=== PATIENT | female | born 1955 | race African-American/Black ===

== ENCOUNTER 2017-11-22 16:48 | Emergency (ER) | payer MEDICARE, MEDICAID ==
[~2017-11-22] VITALS: Ht 167.6 cm; Wt 83.9 kg
[2017-11-22 16:53] VITALS: BP 122/82
[2017-11-22 17:29] LABS: Basophils # (auto) 0.1 uL; Hemoglobin 14.6 g/dL (12.2-16.2); Monocytes % (auto) 7.5 % (0.0-12.0); White Blood Cell 11.4 10^3/uL (4.4-10.8)
[2017-11-22 17:31] LABS: Eosinophils # (auto) 0.1 uL; Eosinophils % (auto) 0.5 % (0.0-7.0); Hematocrit 44.4 % (36.0-46.0); Lymphocytes # (auto) 3.6 uL; Lymphocytes % (auto) 31.4 % (10.0-50.0); Mean Corpuscular Hemoglobin 28.8 pg (28.0-32.0); Mean Corpuscular Hgb Conc. 32.9 g/dL (32.0-36.0); Mean Corpuscular Volume 87.8 fL (80.0-100.0); Monocytes # (auto) 0.9 uL; Neutrophils # (auto) 6.8 uL; Neutrophils % (auto) 59.6 % (37.0-80.0); Nucleated Red Blood Cells % 0.2 %; Platelet Count (auto) 544 10^3/uL (140-450); Red Blood Cells 5.06 10^6/uL (4.0-5.20); Red Cell Distribution Width 13.4 % (11.8-14.3)
[2017-11-22 17:41] LABS: Alanine Aminotransferase 49 U/L (13-56); Albumin 4.2 g/dL (3.4-5.0); Amylase 69 U/L (25-115); Anion Gap 8 (5-15); Aspartate Aminotransferase 34 U/L (15-37); Blood Urea Nitrogen 15 mg/dL (7-18); Calcium 9.7 mg/dL (8.5-10.1); Carbon Dioxide 24 mmol/L (21-32); Chloride 104 mmol/L (98-107); GFR African American 78 mL/min; GFR Non-African American 64 mL/min; Glucose 115 mg/dL (74-106); Lipase 116 U/L (73-393); Potassium 3.8 mmol/L (3.5-5.1); Sodium 136 mmol/L (136-145)
[2017-11-22 17:46] LABS: Alkaline Phosphatase 143 U/L (45-117); Bilirubin, Total 0.2 mg/dL (0.2-1.0); Total Protein 8.4 g/dL (6.4-8.2)
== END 2017-11-23 03:24 | disposition left against medical advice (07) ==
LOC: ER 16:48
DX: R10.9 Unspecified abdominal pain (principal); J11.1 Influenza due to unidentified influenza virus with other respiratory manifestations; Z53.21 Procedure and treatment not carried out due to patient leaving prior to being seen by health care provider
CPT/HCPCS: 36415; 71046; 80053; 82150; 83690; 84484; 85025; 93005

== ENCOUNTER 2018-03-27 10:13 | Emergency (ER) | payer MEDICARE, MEDICAID ==
[~2018-03-27] VITALS: Ht 167.6 cm; Wt 95.3 kg
[2018-03-27] MEDS ORDERED: KETOROLAC TROMETH 60MG/2ML VIAL IM ONE (10:45)
[2018-03-27 10:59] LABS: Basophils # (auto) 0.1 uL; Eosinophils # (auto) 0.1 uL; Nucleated Red Blood Cells % 0.4 %
[2018-03-27 11:00] LABS: Basophils % (auto) 1.3 % (0.0-2.0); Eosinophils % (auto) 1.4 % (0.0-7.0); Hematocrit 42.3 % (36.0-46.0); Lymphocytes # (auto) 3.6 uL; Lymphocytes % (auto) 46.8 % (10.0-50.0); Mean Corpuscular Hemoglobin 28.7 pg (28.0-32.0); Mean Corpuscular Hgb Conc. 33.1 g/dL (32.0-36.0); Mean Corpuscular Volume 86.6 fL (80.0-100.0); Monocytes # (auto) 0.4 uL; Monocytes % (auto) 5.6 % (0.0-12.0); Neutrophils # (auto) 3.4 uL; Neutrophils % (auto) 44.9 % (37.0-80.0); Platelet Count (auto) 514 10^3/uL (140-450); Red Blood Cells 4.88 10^6/uL (4.0-5.20); Red Cell Distribution Width 13.4 % (11.8-14.3); White Blood Cell 7.7 10^3/uL (4.4-10.8)
[2018-03-27 11:10] LABS: Albumin 3.6 g/dL (3.4-5.0); BUN/Creatinine Ratio 9.2; Calcium 9.6 mg/dL (8.5-10.1); Potassium 4.3 mmol/L (3.5-5.1)
[2018-03-27 11:13] LABS: Bilirubin, Total 0.2 mg/dL (0.2-1.0); Total Protein 7.6 g/dL (6.4-8.2)
[2018-03-27 14:30] VITALS: BP 151/88
== END 2018-03-27 14:50 | disposition home or self-care (01) ==
LOC: ER 10:13 → EDBD 10:13 → ER 14:50
DX: J40 Bronchitis, not specified as acute or chronic (principal); I10 Essential (primary) hypertension; R07.9 Chest pain, unspecified
CPT/HCPCS: 36415; 71045; 80053; 84484; 85025; 93005; 96372; 99285; J1885

== ENCOUNTER → 2020-12-20 | Outpatient (CLI) | payer MEDICARE, MEDICAID | END | disposition home or self-care (01) | LOC: Rad HDHVI 15:05 | PROVIDERS: ATTEND Internal Medicine Cardiovascular Disease | DX: I50.43 Acute on chronic combined systolic (congestive) and diastolic (congestive) heart failure (principal); I42.0 Dilated cardiomyopathy | CPT/HCPCS: 93306 ==

== ENCOUNTER → 2021-01-13 | Outpatient (CLI) | payer MEDICARE, MEDICAID ==
[~2021-01-13] VITALS: Ht 167.6 cm; Wt 92.5 kg
== END | disposition home or self-care (01) ==
LOC: Rad HDHVI 08:38
PROVIDERS: ATTEND Internal Medicine Cardiovascular Disease
DX: Z01.810 Encounter for preprocedural cardiovascular examination (principal); I10 Essential (primary) hypertension; E78.00 Pure hypercholesterolemia, unspecified; I25.2 Old myocardial infarction; Z82.49 Family history of ischemic heart disease and other diseases of the circulatory system
CPT/HCPCS: 78452; 93017; 96374; A9500

== ENCOUNTER → 2021-12-21 | Outpatient (CLI) | payer MEDICARE, MEDICAID ==
[~2021-12-21] VITALS: Ht 167.6 cm; Wt 95.3 kg
== END | disposition home or self-care (01) ==
LOC: Rad HDHVI 09:36
PROVIDERS: ATTEND Internal Medicine Cardiovascular Disease
DX: I25.2 Old myocardial infarction (principal); E78.00 Pure hypercholesterolemia, unspecified; Z82.49 Family history of ischemic heart disease and other diseases of the circulatory system
CPT/HCPCS: 78452; 93017; 96374; A9500

== ENCOUNTER → 2021-12-26 | Outpatient (CLI) | payer MEDICARE, MEDICAID | END | disposition home or self-care (01) | LOC: Rad HDHVI 10:19 | PROVIDERS: ATTEND Internal Medicine Cardiovascular Disease | DX: I10 Essential (primary) hypertension (principal); E78.5 Hyperlipidemia, unspecified | CPT/HCPCS: 93306 ==

== ENCOUNTER → 2024-01-21 | Outpatient (CLI) | payer MEDICARE, MEDICAID | END | disposition home or self-care (01) | LOC: Rad HDHVI 14:04 | PROVIDERS: ATTEND Internal Medicine Cardiovascular Disease | DX: I11.9 Hypertensive heart disease without heart failure (principal); E78.5 Hyperlipidemia, unspecified | CPT/HCPCS: 93306 ==

== ENCOUNTER → 2024-01-23 | Outpatient (CLI) | payer MEDICARE, MEDICAID ==
[~2024-01-23] VITALS: Ht 167.6 cm; Wt 100.2 kg
== END | disposition home or self-care (01) ==
LOC: Rad HDHVI 13:00
PROVIDERS: ATTEND Internal Medicine Cardiovascular Disease
DX: I11.0 Hypertensive heart disease with heart failure (principal); I50.33 Acute on chronic diastolic (congestive) heart failure; I25.2 Old myocardial infarction; R73.03 Prediabetes; E78.5 Hyperlipidemia, unspecified; Z82.49 Family history of ischemic heart disease and other diseases of the circulatory system
CPT/HCPCS: 78452; 93017; 96374; A9500

== ENCOUNTER → 2024-06-25 | Outpatient (CLI) | payer MEDICARE, MEDICAID | END | disposition home or self-care (01) | LOC: Rad HDHVI 10:49 | PROVIDERS: ATTEND Internal Medicine Cardiovascular Disease | DX: M47.814 Spondylosis without myelopathy or radiculopathy, thoracic region (principal); M48.04 Spinal stenosis, thoracic region; M25.78 Osteophyte, vertebrae | CPT/HCPCS: 72128 ==

== ENCOUNTER 2025-08-17 12:55 | Outpatient (CLI) | payer MEDICARE, MEDICAID ==
[~2025-08-17 12:55] MED LIST: ATOR20TA50 PO; CLON0.1T PO; FOLI-119 PO; HYDR-4072 PO; HYDR25TA5 PO; ICOS1CAP PO; LISI10TA34 PO; METO-289 PO; NALO1TAB4 PO; ONDA-188 PO; RIV15T PO; SERT-289 PO; SUVO1TAB4 PO
--- NOTE | 2025-08-18 13:35 | DVHSR ---
APPROVED REPORT EXAM: Two-dimensional and M-mode echocardiogram with Doppler and color Doppler. DIMENSIONS LVDd3.4 (3.8-5.7cm)LA (2D)3.3 (1.9-4.0cm)Aortic Root2.9 (2.0-3.7cm) LVDs2.5 (2.5-4.0cm)LA (MM) (1.9-4.0cm)Aortic Cusp Exc1.7 (1.5-2.0cm) EF (%) 53.0 (55-70%)Rt. Atrium3.8 (1.9-4.0cm)Asc. Aorta cm IVSd1.3 (0.7-1.1cm)RV (D)3.5 (1.8-2.4cm) PWd1.3 (0.7-1.1cm) Mitral Valve MitralMitral Stenosis E wave0.37m/sMV Mean GR.mmHg A wave0.76m/sMV Peak GR.mmHg E/A ratio0.52D MVAcm2 DECEL [id number] 1/2 [place] Aortic Valve Aortic ValveAortic Stenosis V10.86m/Tayler Mean GR.2mmHg V21.00m/Tayler Peak GR.4mmHg LVOT Diameter1.9 (1.8-2.4cm)Doppler AVA2.44cm2 Pulmonic Valve V20.81m/s LEFT VENTRICLE The left ventricle is normal size. There is mild concentric left ventricular hypertrophy. The left ventricle is normal in structure and function. The Ejection Fraction is within normal limits. RIGHT VENTRICLE The right ventricle is normal size. ATRIA The left atrial size is normal. The right atrium size is normal. The interatrial septum is intact with no evidence for an atrial septal defect. MITRAL VALVE The mitral valve is normal in structure. There is no mitral valve regurgitation noted. PULMONIC VALVE The pulmonic valve is not well visualized. TRICUSPID VALVE The tricuspid valve is grossly normal. AORTIC VALVE The aortic valve opens well. No aortic regurgitation is present. GREAT VESSELS The aortic root is normal size. PERICARDIAL EFFUSION There is no pericardial effusion. Other Information Technically limited study due to body habitus. Conclusion CONC LVH EF >55%
== END 2025-08-17 17:00 | disposition home or self-care (01) ==
LOC: Rad HDHVI 12:55
PROVIDERS: ATTEND Internal Medicine Cardiovascular Disease
DX: I11.9 Hypertensive heart disease without heart failure (principal); E78.5 Hyperlipidemia, unspecified
CPT/HCPCS: 93306

== ENCOUNTER 2025-08-31 13:04 | Outpatient (CLI) | payer MEDICARE, MEDICAID ==
[~2025-08-31] VITALS: Ht 167.6 cm; Wt 86.6 kg
== END 2025-08-31 17:00 | disposition home or self-care (01) ==
LOC: Rad HDHVI 13:04
PROVIDERS: ATTEND Internal Medicine Cardiovascular Disease
DX: I49.1 Atrial premature depolarization (principal); R00.0 Tachycardia, unspecified; I25.10 Atherosclerotic heart disease of native coronary artery without angina pectoris; I11.0 Hypertensive heart disease with heart failure; I50.33 Acute on chronic diastolic (congestive) heart failure; E11.9 Type 2 diabetes mellitus without complications; E78.5 Hyperlipidemia, unspecified; I25.2 Old myocardial infarction; R06.02 Shortness of breath; R42 Dizziness and giddiness; R07.89 Other chest pain; Z82.49 Family history of ischemic heart disease and other diseases of the circulatory system
CPT/HCPCS: 78452; 93017; A9500; 96374